=== PATIENT | female | born 1985 | race Caucasian/White ===

== ENCOUNTER 2020-06-08 04:00 | Inpatient (IN) ==
[2020-06-08] MEDS ORDERED: EPHEDrine 50 MG/ML VIAL IVP PRN (08:54)
[2020-06-08] MEDS ORDERED: Epidural Premix (fent/bupiv) 110 ML EP SCH (09:00)
[2020-06-08] MEDS ORDERED: Metoclopramide 10 MG/2 ML VIAL IVP PRN (09:16)
[2020-06-08] MEDS ORDERED: Naloxone 0.4 MG/ML INJ IVP PRN (09:16)
[2020-06-08] MEDS ORDERED: Famotidine 20 MG/2 ML VIAL IVP PRN (09:16)
[2020-06-08] MEDS ORDERED: Ringers Solution, Lactated 1,000 ML ONE ×3 (09:21→14:23)
[2020-06-08 09:52] LABS: Basophils # 0.1 K/mcL (0.0-0.2); Basophils % 0.7 %; Eosinophils # 0.1 K/mcL (0.0-0.6); Eosinophils % 1.3 %; Hemoglobin 11.6 g/dL (11.5-15.4); Immature Granulocytes % 1.8 % (0-4); Lymphocytes # 1.8 K/mcL (0.6-4.6); Lymphocytes % 16.3 %; Mean Corpuscular HGB Conc 32.2 g/dL (31.6-35.5); Mean Corpuscular Hemoglobin 28.3 pg (28.0-33.3); Mean Corpuscular Volume 87.8 fL (83.0-100.0); Mean Platelet Volume 9.3 fL (9.4-12.4); Monocytes # 1.1 K/mcL (0.0-1.3); Monocytes % 10.4 %; Neutrophils # 7.6 K/mcL (1.6-8.9); Platelet Count 249 K/mcL (140-400); Segmented Neutrophils % 69.5 %; White Blood Count 10.9 K/mcL (4.3-11.1)
[2020-06-08] MEDS: Oxytocin 20 units/ LR 1000 mL 20 UNIT/1,000 ML BAG IVC SCH ×2 (09:58→17:42)
[2020-06-08 13:07] LABS: Amphetamine Screen,Urine Negative ng/mL (Cutoff=1000); Barbiturate Screen,Urine Negative ng/mL (Cutoff=200); Benzodiazepines Screen,Urine Negative ng/mL (Cutoff=200); Cannabinoid Screen,Urine Negative ng/mL (Cutoff = 50); Cocaine Screen,Urine Negative ng/mL (Cutoff= 300); Opiate Screen,Urine Negative ng/mL (Cutoff=300); Phencyclidine Screen,Urine Negative ng/mL (Cutoff=25)
[2020-06-08] MEDS ORDERED: Lidocaine/EPI 1:200k 2% PF 20 ML VIAL ONE (14:19)
[2020-06-08] MEDS ORDERED: Sodium Bicarbonate 50 MEQ/50 ML VIAL ONE (14:19)
[2020-06-08] MEDS ORDERED: *HR* FentaNYL (PF) 100 MCG/2 ML VIAL ONE (14:33)
[2020-06-08] MEDS ORDERED: Rho Immune Globulin 1,500 UNIT SYRINGE IM PRN (18:13)
[2020-06-08] MEDS ORDERED: Measles/Mumps/Rubella Vacc 0.5 ML VIAL SQ PRN (18:13)
[2020-06-08] MEDS ORDERED: Oxytocin 20 units/ LR 1000 mL 20 UNIT/1,000 ML BAG IVC SCH (18:13)
[2020-06-08] MEDS: Acetaminophen 325 MG TABLET PO PRN (20:28)
[2020-06-08] MEDS: Ibuprofen 600 MG TABLET PO PRN (23:55)
[2020-06-09] MEDS: Acetaminophen 325 MG TABLET PO PRN ×2 (03:56→11:15)
[2020-06-09 05:36] LABS: Basophils # 0.1 K/mcL (0.0-0.2); Basophils % 0.4 %; Eosinophils # 0.2 K/mcL (0.0-0.6); Eosinophils % 1.4 %; Hematocrit 34.1 % (35.3-44.9); Hemoglobin 11.2 g/dL (11.5-15.4); Immature Granulocytes % 1.1 % (0-4); Lymphocytes # 2.3 K/mcL (0.6-4.6); Lymphocytes % 16.6 %; Mean Corpuscular HGB Conc 32.8 g/dL (31.6-35.5); Mean Corpuscular Hemoglobin 29.4 pg (28.0-33.3); Mean Corpuscular Volume 89.5 fL (83.0-100.0); Mean Platelet Volume 9.2 fL (9.4-12.4); Monocytes # 1.2 K/mcL (0.0-1.3); Monocytes % 8.7 %; Platelet Count 201 K/mcL (140-400); Red Blood Count 3.81 M/mcL (3.82-4.97); Red Cell Distribution Width 14.1 % (11.5-14.5); Segmented Neutrophils % 71.8 %; White Blood Count 13.9 K/mcL (4.3-11.1)
[2020-06-09] MEDS: Ibuprofen 600 MG TABLET PO PRN (07:40)
[2020-06-09 07:58] VITALS: BP 133/79
[2020-06-09] MEDS ORDERED: Prenatal Vit/FA 1 EACH TABLET PO SCH (09:00)
[2020-06-09] MEDS ORDERED: Benzocaine/Menthol 56 GM AEROSOL SPRAY TP PRN (14:52)
== END 2020-06-09 16:45 | disposition home or self-care (01) | DRG 807 ==
LOC: 1NENULAB 07:58 → 1NENUOBS 17:58
PROVIDERS: ADMIT Obstetrics & Gynecology; ATTEND Obstetrics & Gynecology